=== PATIENT | female | born 1935 ===

== ENCOUNTER 2017-11-19 15:09 | Inpatient (IN) | payer OTHER ==
[~2017-11-19] VITALS: Ht 157.5 cm; Wt 83.5 kg
[2017-11-20] MEDS ORDERED: [UNRECOGNIZED DRUG - OTHER] PO (11:10)
[2017-11-20] MEDS ORDERED: HYDROCHLOROTH12.5 M1 PO (11:11)
[2017-11-20] MEDS ORDERED: GABAPENTIN600 MG PO (11:11)
[2017-11-20] MEDS ORDERED: ZESTRIL2.5 MG PO (11:12)
[2017-11-20] MEDS ORDERED: AMLODIPINE BESYL5 MG PO (11:12)
[2017-11-20] MEDS ORDERED: ATORVASTATIN CA20 MG PO (11:13)
[2017-11-20] MEDS ORDERED: GLIPIZIDE10 MG PO (11:13)
[2017-11-20] MEDS ORDERED: METFORMIN HCL500 MG PO (11:13)
== END 2017-12-02 10:10 | disposition home or self-care (01) | DRG 743 ==
LOC: SURH 11-29 05:59 → O/R 11-29 05:59 → EDBD 11-29 11:00 → SURH 11-29 11:00
PROVIDERS: Obstetrics & Gynecology Gynecologic Oncology
PROC: 0DTJ0ZZ Resection of Appendix, Open Approach (ICD-10-PCS; 2017-11-29)
PROC: 0DBU0ZZ Excision of Omentum, Open Approach (ICD-10-PCS; 2017-11-29)
PROC: 0UT20ZZ Resection of Bilateral Ovaries, Open Approach (ICD-10-PCS; 2017-11-29)
PROC: 3E1M38X Irrigation of Peritoneal Cavity using Irrigating Substance, Percutaneous Approach, Diagnostic (ICD-10-PCS; 2017-11-29)
PROC: 0UT70ZZ Resection of Bilateral Fallopian Tubes, Open Approach (ICD-10-PCS; principal; 2017-11-29 13:45)
DX: D27.1 Benign neoplasm of left ovary (principal); D28.2 Benign neoplasm of uterine tubes and ligaments; N83.8 Other noninflammatory disorders of ovary, fallopian tube and broad ligament